=== PATIENT | male | born 1985 | race Caucasian/White ===

== ENCOUNTER 2020-07-27 19:02 | Observation (INO) | payer MEDICAID, OTHER ==
[~2020-07-27] VITALS: Ht 170.2 cm; Wt 70.3 kg
--- NOTE | 2020-07-27 19:10 | NUR ---
PT BRANDON FROM STREET FOR ALCOHOL INTOXICATION. PER RA, FOUND WITH BOTTLE OF [place] ON SCENE. PT OPENS EYES TO VOICE. VITAL SIGNS STABLE. RESPIRATIONS EVEN AND UNLABORED. NO ACUTE DISTRESS NOTED AT THIS TIME. PLACED ON MONITOR, WILL CONTINUE TO MONITOR
--- NOTE | 2020-07-27 19:35 | NUR ---
CONSULTANT TECHNOLOGY AT BEDSIDE FOR BLOOD DRAW
--- NOTE | 2020-07-27 19:37 | NUR ---
PT URINATED ALL OVER GURNEY AND FLOOR, UNABLE TO OBTAIN SAMPLE. STEPHANIE PALM MADE AWARE
[2020-07-27 19:40] LABS: BASOPHILS # (AUTO) 0.1 /CMM (0.0-0.2); BASOPHILS % (AUTO) 1.2 % (0.0-2.0); EOSINOPHILS % (AUTO) 2.6 % (0.0-6.0); HEMATOCRIT 45 % (39-51); HEMOGLOBIN 15.2 g/dL (13.5-17.5); LYMPHOCYTES # (AUTO) 5.3 /CMM (0.8-4.8); LYMPHOCYTES % (AUTO) 51.2 % (20.0-44.0); MEAN CORPUSCULAR HGB CONC 34 g/dl (31.0-36.0); MEAN CORPUSCULAR VOLUME 93 fL (80-96); MONOCYTES # (AUTO) 0.8 /CMM (0.1-1.30); MONOCYTES % (AUTO) 7.7 % (2.0-12.0); NEUTROPHILS # (AUTO) 3.9 /CMM (1.8-8.9); NEUTROPHILS % (AUTO) 37.3 % (43.0-81.0); PLATELET COUNT (AUTO) 316 /CMM (150-450); RED BLOOD CELL COUNT(AUTO) 4.82 MIL/uL (4.5-6.0); WHITE BLOOD COUNT (AUTO) 10.4 K/uL (4.3-11.0)
--- NOTE | 2020-07-27 19:46 | NUR ---
PT PLACED IN SPINAL PRECAUTIONS VIA EMT [facility] WITH CERVICAL COLLAR.
[2020-07-27 19:49] LABS: CALCIUM, SERUM 8.2 mg/dL (8.5-10.1); CARBON DIOXIDE 24 mmol/L (21-32); CHLORIDE 103 mmol/L (98-107); GLUCOSE 132 mg/dL (74-106); POTASSIUM 3.9 mmol/L (3.5-5.1); SODIUM SERUM 137 mmol/L (136-145); UREA NITROGEN, BLOOD 10 mg/dL (7-18)
[2020-07-27 19:57] LABS: ALANINE AMINOTRANSFERASE 39 U/L (12-78); ALBUMIN 3.7 g/dL (3.4-5.0); ALCOHOL, BLOOD 426 mg/dL (0-0); ALKALINE PHOSPHATASE 120 U/L (46-116); ASPARTATE AMINOTRANSFERASE 33 U/L (15-37); BILIRUBIN,TOTAL 0.2 mg/dL (0.2-1.0); TOTAL PROTEIN, SERUM 7.9 g/dL (6.4-8.2)
[2020-07-27 20:24] LABS: ACETAMINOPHEN < 2 ug/ml (10-30)
--- NOTE | 2020-07-27 22:02 | NUR ---
URINE COLLECTED AND SENT TO LAB
[2020-07-27 22:15] LABS: BILIRUBIN,URINE Negative (NEGATIVE); BLOOD, URINE Negative Ery/uL (NEGATIVE); COLOR,URINE Yellow (YELLOW); LEUKOCYTE ESTERASE ,URINE Negative (NEGATIVE); NITRITE, URINE Negative (NEGATIVE); PROTEIN,URINE Negative (NEGATIVE); UGLUCOSE Negative (NEGATIVE); UROBILINOGEN,URINE 0.2 EU/dL (0.2)
[2020-07-27] MEDS ORDERED: IV NS 0.9% 1,000 ML IV PRN (23:30)
[2020-07-27] MEDS ORDERED: ONDANSETRON HCL/PF 4 MG/2 ML VIAL IVP PRN (23:30)
--- NOTE | 2020-07-28 00:43 | NUR ---
ATTEMPTED TO INSERT IV LINE. PT REFUSED. AWARE
--- NOTE | 2020-07-28 06:35 | NUR ---
ATTEMPTED TO DISCHARGE PATIENT, UPON DISCHARGE PT IS NOW C/O SUICIDAL IDEATION WITH PLAN TO RUN INTO TRAFFIC. AWARE
--- NOTE | 2020-07-28 06:47 | NUR ---
MRI SPECIALIST AT BEDSIDE
[2020-07-28] MEDS ORDERED: OLAN10TA3 PO (07:27)
[2020-07-28] MEDS ORDERED: SERT100T PO (07:27)
[2020-07-28] MEDS ORDERED: BUSP10TA35 PO (07:27)
--- NOTE | 2020-07-28 08:05 | NUR ---
pt awake. ambulatory w. steady gait. was at nursing station stating he is not suicidal and wants to be discharge. will provide clothing if cleared.
--- NOTE | 2020-07-28 09:20 | NUR ---
pt anxious to leave ed. insist on not being suicidal. was offered clothing but states he really needs to leave.
--- NOTE | 2020-07-28 09:30 | NUR ---
pt left the ed. ambulatory w/ steady gait. verbally discharge. medically cleared.
[2020-07-28 09:41] VITALS: BP 122/71
== END 2020-07-28 09:00 | disposition home or self-care (01) ==
LOC: PART 19:04 → EDBD 19:04 → TRANSITION 22:52
PROVIDERS: ADMIT Nurse Practitioner Acute Care; ATTEND Nurse Practitioner Acute Care
DX: F10.129 Alcohol abuse with intoxication, unspecified (principal); Y90.8 Blood alcohol level of 240 mg/100 ml or more; G93.40 Encephalopathy, unspecified; M53.82 Other specified dorsopathies, cervical region; R73.9 Hyperglycemia, unspecified; Z59.0 Homelessness
CPT/HCPCS: 36415 ×2; 70450; 72125; 80048; 80076; 80299; 80307; 80320 ×2; 81001; 85025; G0378 ×10; J7030; L0172; 81000-TC; G0480; J2405